=== PATIENT | male | born 1955 | race Caucasian/White ===

== ENCOUNTER 2019-04-16 07:05 | Day surgery (SDC) | payer MEDICAID, OTHER ==
[2019-04-16] MEDS ORDERED: fentaNYL 100 MCG/2 ML SDV ONE (07:11)
[2019-04-16] MEDS ORDERED: Propofol 200 MG/20 ML SDV ONE ×2 (07:11→08:44)
[2019-04-16] MEDS ORDERED: Midazolam 1 MG/ML 2 ML SDV ONE (07:11)
[2019-04-16] MEDS ORDERED: Lactated Ringers 1,000 ML IV SCH (08:00)
[2019-04-16 08:58] VITALS: PULSE 70
[2019-04-16 09:17] VITALS: BP 124/79
--- NOTE | 2019-04-17 08:21 | OR ---
DATE OF PROCEDURE: 04/16/2019 PREOPERATIVE DIAGNOSIS: History of adenomatous polyps. POSTOPERATIVE DIAGNOSES: 1. Diverticulosis. 2. History of adenomatous polyps. PROCEDURE: Colonoscopy to the cecum. SURGEON: Heraclio Alegria MD ANESTHESIA: IV anesthesia with monitored anesthesia care. INDICATION: This 64-year-old white male is referred for a colonoscopy because of a history of colon polyps. He says his last colonoscopic exam was done 3 years ago. I counseled him for the procedure, including risks alternatives, and he gave his informed consent to proceed. DESCRIPTION OF PROCEDURE: The patient was placed in the left lateral decubitus position. IV anesthesia was administered by the Anesthesia Service. Time-out was held. A rectal exam was performed, which was unremarkable. The flexible video Olympus colonoscope was introduced through his anus, up his rectum, and out his colon all way to the cecum. En route, we saw multiple at times large left-sided diverticula. There was no bleeding or inflammation associated with any of them. Once the cecum was reached, the scope was slowly withdrawn examining the mucosa throughout. No additional mucosal abnormalities were noted. The scope was retroflexed in the rectum with the distal rectum appearing unremarkable. The scope was straightened and removed. He tolerated the procedure well. Heraclio Alegria MD /[id number]
== END 2019-04-16 10:10 | disposition home or self-care (01) ==
LOC: JP.SDS 07:05
PROVIDERS: ATTEND Surgery
DX: Z12.11 Encounter for screening for malignant neoplasm of colon (principal); K57.30 Diverticulosis of large intestine without perforation or abscess without bleeding; I10 Essential (primary) hypertension; Z95.5 Presence of coronary angioplasty implant and graft; Z86.010 Personal history of colon polyps
CPT/HCPCS: 45378; J2250; J2704; J3010; J7120

== ENCOUNTER 2023-08-03 09:39 | Day surgery (SDC) | payer MEDICARE, BC ==
[2023-08-03] MEDS ORDERED: Midazolam 1 MG/ML 2 ML SDV ONE (09:46)
[2023-08-03] MEDS ORDERED: Propofol 200 MG/20 ML SDV ONE (09:46)
[2023-08-03] MEDS ORDERED: fentaNYL 100 MCG/2 ML SDV ONE (09:46)
[2023-08-03] MEDS ORDERED: Lidocaine 0.5% 50 ML SDV ONE (09:51)
[2023-08-03 10:08] LABS: BASOPHILS ABSOLUTE AUTO 0.03 K/uL (0.00-0.10); BASOPHILS PERCENT AUTO 0.5 % (0.1-1.3); EOSINOPHILS ABSOLUTE AUTO 0.23 K/uL (0.00-0.40); EOSINOPHILS PERCENT AUTO 3.6 % (0.0-5.4); HEMATOCRIT 42.7 % (38.4-49.7); HEMOGLOBIN 14.9 g/dL (12.9-16.9); IMMATURE GRAN PERCENT AUTO 0.3 % (0.0-0.7); LYMPHOCYTES ABSOLUTE AUTO 1.09 K/uL (0.8-3.3); MEAN CORPUSCULAR HEMOGLOBIN 31.8 pg (31.6-35.5); MEAN CORPUSCULAR HGB CONC 34.9 g/dL (31.6-35.5); MONOCYTES ABSOLUTE AUTO 0.79 K/uL (0.20-0.90); MONOCYTES PERCENT AUTO 12.3 % (3.3-12.6); NEUTROPHILS ABSOLUTE AUTO 4.26 K/uL (1.0-7.6); NEUTROPHILS PERCENT AUTO 66.3 % (40.0-78.1); PLATELET COUNT,PLT 255 K/uL (130-375); RED BLOOD CELL COUNT 4.69 M/uL (4.14-5.76); WHITE BLOOD CELL COUNT,WBC 6.4 K/uL (3.2-11.0)
[2023-08-03 10:10] LABS: IMMATURE GRAN ABSOLUTE AUTO 0.02 K/uL (0.00-0.23)
[2023-08-03] MEDS ORDERED: Nozin Nasal Sanitizer NASBOTH ONE (10:15)
[2023-08-03] MEDS ORDERED: Lactated Ringers 1,000 ML IV SCH (10:15)
[2023-08-03 10:32] LABS: A/G RATIO 1.2 (1.2-2.2); ALANINE AMINOTRANSFERASE,ALT 36 U/L (12-78); ALBUMIN 3.8 g/dL (3.4-5.0); ALKALINE PHOSPHATASE 54 U/L (46-116); ANION GAP 13.1 mmol/L (5.0-14.0); ASPARTATE AMNIOTRANSFERASE,AST 25 U/L (15-37); BILIRUBIN TOTAL 0.8 mg/dL (0.2-1.0); BLOOD UREA NITROGEN,BUN 18 mg/dL (7-18); CALCIUM 8.7 mg/dL (8.5-10.1); CARBON DIOXIDE,CO2 25 mmol/L (21-32); CHLORIDE,CL 103 mmol/L (100-108); CREATININE 1.1 mg/dL (0.8-1.3); EST CRCL DRUG DOSING (CG) 72.64 mL/min; ESTIMATED GFR 73 mL/min (>60); GLUCOSE RANDOM 113 mg/dL (74-106); POTASSIUM,K 4.1 mmol/L (3.6-5.2); SODIUM,NA 137 mmol/L (140-148)
[2023-08-03] MEDS ORDERED: ceFAZolin 1 GM in Premix Bag 1 BAG IV ONE (10:45)
[2023-08-03] MEDS ORDERED: Bupivacaine 0.5% 30 ML SDV ONE (12:41)
[2023-08-03 14:27] VITALS: BP 120/68; PULSE 59
== END 2023-08-03 14:35 | disposition home or self-care (01) ==
LOC: JP.SDS 09:39
PROVIDERS: ATTEND Specialist
DX: G56.01 Carpal tunnel syndrome, right upper limb (principal); M65.831 Other synovitis and tenosynovitis, right forearm; I25.10 Atherosclerotic heart disease of native coronary artery without angina pectoris; I25.2 Old myocardial infarction; E66.9 Obesity, unspecified; Z95.5 Presence of coronary angioplasty implant and graft
CPT/HCPCS: 36415; 64721; 80053; 85025; A9270; J0690; J2250; J2704; J3010; J3490; J7120

== ENCOUNTER 2024-11-02 06:30 | Day surgery (SDC) | payer MEDICARE, BC ==
[2024-11-02] MEDS: Lactated Ringers 1,000 ML IV SCH (06:55)
[2024-11-02] MEDS ORDERED: Propofol 200 MG/20 ML SDV ONE ×3 (07:13→08:20)
[2024-11-02] MEDS ORDERED: fentaNYL 100 MCG/2 ML SDV ONE (07:13)
[2024-11-02 09:37] VITALS: PULSE 68
[2024-11-02 09:48] VITALS: BP 117/64
== END 2024-11-02 11:06 | disposition home or self-care (01) ==
LOC: JP.SDS 06:30
PROVIDERS: ATTEND Family Medicine
DX: Z12.11 Encounter for screening for malignant neoplasm of colon (principal); D12.3 Benign neoplasm of transverse colon; D12.2 Benign neoplasm of ascending colon; D12.4 Benign neoplasm of descending colon; K63.5 Polyp of colon; K57.30 Diverticulosis of large intestine without perforation or abscess without bleeding; I25.10 Atherosclerotic heart disease of native coronary artery without angina pectoris; E78.5 Hyperlipidemia, unspecified; Z86.0100 Personal history of colon polyps, unspecified
CPT/HCPCS: 00811-QZ; 88305; J2704; J3010; J7120